=== PATIENT | male | born 1995 | race African-American/Black ===

== ENCOUNTER 2018-02-15 12:23 | Emergency (ER) | payer BC ==
--- NOTE | 2018-02-15 13:53 | ED ---
GI/ HPI - HPI Summary HPI Summary: Pt presents w/ foreskin irritation past couple of days. He is uncircumcised and concerned that the skin is becoming inflamed. He is still able to move it back and forth over the glans without difficulty but simply notes that it's red and irritated. He had issues with retracting his foreskin months ago but discussed with PCP who prescribed him triamcinolone ointment and advised that he use it 2 times a day. He's had no issues since however he is reduce his use from 2 times a day to 1 time a day. He is still able to pull the skin back, slightly urinate, denies shaft pain, lesions, testicular pain or swelling, ongoing pain or swelling, fevers, chills. Foreskin at the base is simply red, irritated and a little tight. Additionally, he notes he has not tried any new condoms, lubricants etc. that could be irritating to the area. No recent trauma or bacterial exposure that he is concerned about. - History of Current Complaint Chief Complaint: EDUrogenitalProblems Time Seen by Provider: 02/15/18 13:37 Stated Complaint: SWELLING GENITALS Hx Obtained From: Patient Pain Intensity: 0 - Allergy/Home Medications Allergies/Adverse Reactions: Allergies Allergy/AdvReac Type Severity Reaction Status Date / Time No Known Allergies Allergy Verified 02/15/18 12:24 PMH/Surg Hx/FS Hx/Imm Hx Previously Healthy: Yes Endocrine/Hematology History: Denies: Autoimmune Disease Respiratory History: Denies: Hx Asthma - Surgical History Surgery Procedure, Year, and Place: atrial septal repair at age 14 - Immunization History Immunizations Up to Date: Yes Infectious Disease History: No Infectious Disease History: Denies: Hx Human Immunodeficiency Virus (HIV), Hx of Known/Suspected MRSA, Traveled Outside the [place] in Last 30 Days - Family History Known Family History: Positive: None - Social History Occupation: Student - [employer] Alcohol Use: Weekly Hx Substance Use: No Substance Use Type: Reports: None Hx Tobacco Use: No Smoking Status (MU): Never Smoked Tobacco Review of Systems Constitutional: Negative Negative: Fever, Chills, Fatigue Gastrointestinal: Negative Negative: Abdominal Pain, Vomiting, Nausea Positive: see HPI. Negative: dysuria, discharge, frequency, flank pain, hematuria, incontinence, pain, urgency Positive: Rash Psychological: Normal All Other Systems Reviewed And Are Negative: Yes Physical Exam Triage Information Reviewed: Yes Vital Signs On Initial Exam: Initial Vitals Temp Pulse Resp BP Pulse Ox 99 F 94 16 158/98 100 02/15/18 12:24 02/15/18 12:24 02/15/18 12:24 02/15/18 12:24 02/15/18 12:24 Vital Signs Reviewed: Yes Appearance: Positive: Well-Appearing, No Pain Distress, Thin Skin: Positive: Warm, Skin Color Reflects Adequate Perfusion, Dry - no rash over general body Head/Face: Positive: Normal Head/Face Inspection Eyes: Positive: EOMI ENT: Positive: Hearing grossly normal, Pharynx normal - mucosa moist Respiratory/Lung Sounds: Positive: Breath Sounds Present Cardiovascular: Positive: Normal Abdomen Description: Positive: Nontender Male Genital Exam: Positive: Erythema - mild erythema of foreskin closest to bsae of glans which has a layer of white d/c tucked into crease here - no maceration, no bleeding, no oozing. Negative: Lesions, Scrotum Tenderness (R), Scrotum Tenderness (L), Testicular Tenderness (R), Testicular Tenderness (L), Urethral Discharge Musculoskeletal: Positive: Normal, Strength/ROM Intact Neurological: Positive: Normal, Sensory/Motor Intact, Alert, Oriented to Person Place, Time, CN Intact II-III Psychiatric: Positive: Anxious Diagnostics - Vital Signs Vital Signs Temp Pulse Resp BP Pulse Ox 02/15/18 12:24 99 F 94 16 158/98 100 - Laboratory Lab Statement: Any lab studies that have been ordered have been reviewed, and results considered in the medical decision making process. GIGU Course/Dx - Course Course Of Treatment: suspect fungal/candidal infection along glans under foreskin - pt has been using steroid ointment to aid in inflammation and better movement of foreskin which has helped that issue however may have develop 2ndry infection. Advised on cleaning and cessation of steroid and start anti-yeast med until cx's return. If danger s/sx present in meantime he will seek medical attention. Does not want STD testing today. - Diagnoses Provider Diagnoses: Balanitis Discharge - Sign-Out/Discharge Documenting (check all that apply): Patient Departure - Discharge Plan Condition: Stable Disposition: HOME Prescriptions: Clotrimazole 1% CREAM* [Clotrimazole 1%*] 1 applic TOPICAL BID #1 tube Patient Education Materials: Balanitis (ED) Referrals: [facility] [, APPLICATION, OTHER] - Additional Instructions: STOP triamcinolone ointment (steroid) and START antifungal topical cream CLOTRIMAZOLE 2 times a day and keep the area clean and dry to the best of your ability. Cultures were taken today and should return anywhere from 2-3 days up to next Saturday. You'll receive a call if medications need to be changed. Otherwise, follow-up with [facility] on Saturday if symptoms are persisting. *If worse to the point where you have difficulty urinating, if he did develop a high fever or intractable pain despite trying Tylenol and ibuprofen, return to the emergency department. - Billing Disposition and Condition Condition: STABLE Disposition: Home
[2018-02-15 14:52] VITALS: BP 121/74
--- NOTE | 2018-02-17 16:41 | PN ---
Progress Note - Progress Note Date of Service: 02/15/18 Note: Pt. seen in ED 02/15 for penile erythema and irritation. Pt. was started on antifungals. Wound culture obtained at that time. Culture today is growing proteus mirabilis. Attempted to call pt. today to see how he was doing at 1640 with no answer--mailbox full. Will attempt to call again tomorrow.
--- NOTE | 2018-02-19 17:44 | ED ---
Progress - Progress Note Progress Note: Sensitivities available. Will fax to [facility]. Abelardo faith clerk aware. Course/Dx - Course Course Of Treatment: suspect fungal/candidal infection along glans under foreskin - pt has been using steroid ointment to aid in inflammation and better movement of foreskin which has helped that issue however may have develop 2ndry infection. Advised on cleaning and cessation of steroid and start anti-yeast med until cx's return. If danger s/sx present in meantime he will seek medical attention. Does not want STD testing today. - Diagnoses Provider Diagnoses: Balanitis Discharge - Sign-Out/Discharge Documenting (check all that apply): Post-Discharge Follow Up - Discharge Plan Condition: Stable Disposition: HOME Prescriptions: Clotrimazole 1% CREAM* [Clotrimazole 1%*] 1 applic TOPICAL BID #1 tube Patient Education Materials: Ryan (ED) Referrals: [facility],[place] [Z.BUSINESS, APPLICATION, OTHER] - Additional Instructions: STOP triamcinolone ointment (steroid) and START antifungal topical cream CLOTRIMAZOLE 2 times a day and keep the area clean and dry to the best of your ability. Cultures were taken today and should return anywhere from 2-3 days up to next Saturday. You'll receive a call if medications need to be changed. Otherwise, follow-up with [facility] on Saturday if symptoms are persisting. *If worse to the point where you have difficulty urinating, if he did develop a high fever or intractable pain despite trying Tylenol and ibuprofen, return to the emergency department. - Billing Disposition and Condition Condition: STABLE Disposition: Home
== END 2018-02-15 14:51 | disposition home or self-care (01) ==
LOC: ED 12:23
DX: N48.1 Balanitis (principal)
CPT/HCPCS: 87070; 87077; 87102; 87186; 99282

== ENCOUNTER 2019-02-22 12:30 | Emergency (ER) | payer BC ==
[2019-02-22 12:37] VITALS: BP 131/87
--- NOTE | 2019-02-22 13:03 | UC ---
Throat Pain/Nasal Nathan HPI - History of Current Complaint Chief Complaint: UCGeneralIllness Stated Complaint: SORE THROAT Time Seen by Provider: 02/22/19 12:49 Hx Obtained From: Patient Onset/Duration: Sudden Onset, Lasting Days Severity: Mild Pain Intensity: 0 Cough: Nonproductive Associated Signs & Symptoms: Positive: Dysphagia, Hoarseness, Sinus Discomfort - Allergies/Home Medications Allergies/Adverse Reactions: Allergies Allergy/AdvReac Type Severity Reaction Status Date / Time No Known Allergies Allergy Verified 02/22/19 12:38 PMH/Surg Hx/FS Hx/Imm Hx Previously Healthy: Yes - Surgical History Surgical History: None Surgery Procedure, Year, and Place: atrial septal repair at age 14 - Family History Known Family History: Positive: None Negative: Cardiac Disease, Hypertension - Social History Alcohol Use: Weekly Substance Use Type: None Smoking Status (MU): Never Smoked Tobacco - Immunization History Most Recent Influenza Vaccination: none Review of Systems All Other Systems Reviewed And Are Negative: Yes Constitutional: Positive: Fatigue ENT: Positive: Sore Throat, Nasal Discharge, Sinus Congestion, Sinus Pain/ Tenderness Respiratory: Positive: Cough Neurological: Positive: Headache Is Patient Immunocompromised?: No Physical Exam Triage Information Reviewed: Yes Appearance: Well-Nourished, Ill-Appearing, Pain Distress Vital Signs: Initial Vital Signs Temp 99.1 F 02/22/19 12:34 Pulse 105 02/22/19 12:34 Resp 16 02/22/19 12:34 BP 131/87 02/22/19 12:34 Pulse Ox 100 02/22/19 12:34 Vital Signs Reviewed: Yes Eye Exam: Normal ENT: Positive: Pharyngeal erythema, Nasal congestion, TM bulging, TM dull, TM red, Tonsillar swelling, Sinus tenderness Dental Exam: Normal Neck exam: Normal Respiratory Exam: Normal Respiratory: Positive: Chest non-tender, Lungs clear, Normal breath sounds Cardiovascular Exam: Normal Cardiovascular: Positive: No Murmur, Pulses Normal, Tachycardia Abdominal Exam: Normal Abdomen Description: Positive: Nontender, No Organomegaly, Soft Musculoskeletal Exam: Normal Neurological Exam: Normal Psychological Exam: Normal Skin Exam: Normal Throat Pain/Nasal Course/Dx - Course Course Of Treatment: hx obtained, exam performed ,meds reviewed, treated - Differential Dx/Diagnosis Differential Diagnosis/HQI/PQRI: Pharyngitis, Sinusitis Provider Diagnosis: Sinusitis Discharge ED - Sign-Out/Discharge Documenting (check all that apply): Patient Departure All imaging exams completed and their final reports reviewed: No Studies - Discharge Plan Condition: Stable Disposition: HOME Prescriptions: Azithromyxin MARLEN (NF) [Z-Marlen (Zithromax) 250 mg tabs #6] 2 tab PO .TODAY, THEN 1 DAILY #6 tab Patient Education Materials: Sinusitis (ED) Referrals: No Primary Care Phys,NOPCP [Primary Care Provider] - Additional Instructions: 1. INcrease fluids 2. Take the medication as prescribed 3. VIcks, FIshermans throat lozenges, nasal saline all help with your symptoms - Billing Disposition and Condition Condition: STABLE Disposition: Home
== END 2019-02-22 13:25 | disposition home or self-care (01) ==
LOC: UCEAST 12:30
DX: J32.9 Chronic sinusitis, unspecified (principal); R53.83 Other fatigue
CPT/HCPCS: 87651; 99212; G0463